=== PATIENT | male | born 2000 | race Hispanic/Latino ===

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

== ENCOUNTER 2020-02-28 07:40 | Outpatient (CLI) | payer OTHER ==
--- NOTE | 2020-02-28 08:49 | CT ---
CT OF THE ABDOMEN AND PELVIS WITH IV CONTRAST INDICATION: History of testicular cancer COMPARISON: February 04, 2019 FINDINGS: ABDOMEN: Lung bases: Clear Liver: There is mild fatty liver that appears slightly more pronounced than the prior exam. Gallbladder: Normal appearing. Pancreas: Normal. Adrenal glands: Normal. Spleen: Normal. Kidneys and ureters: Normal. No hydronephrosis. Vasculature: Normal. Lymph nodes:No lymphadenopathy. Free fluid in abdomen:No free fluid is evident. PELVIS: Small and large bowel: There is mild colonic diverticulosis without evidence of active diverticulitis . The sigmoid colon is poorly distended accentuating the wall thickness. No definite pericolonic inflammatory stranding is noted. Appendix:Not seen Bladder: Decompressed Rectal and perirectal soft tissues:Normal. Reproductive structures: Right testicle surgically absent. Free fluid in pelvis: No free fluid is evident. Lymphadenopathy pelvis: No lymphadenopathy is evident. Osseous structures: No acute osseous abnormality. No destructive osteolytic or osteoblastic lesion i s identified. Soft tissues:Normal. IMPRESSION: 1. No evidence to suggest metastatic disease in the abdomen or pelvis. 2. Right orchiectomy. 3. Mild fatty liver, new from the prior exam. 4. Mild colonic diverticulosis. There is decompression of the sigmoid colon with accentuated wall thi ckness. A component of a mild sigmoid colonic diverticulitis is not excluded.
--- NOTE | 2020-02-28 09:53 | RAD ---
TWO VIEW CHEST: HISTORY: Testicular cancer followup. COMPARISON: 02/04/2019. FINDINGS: MediPort catheter right subclavian is unchanged with tip overlying the SVC. The lung donovan are dave r. Heart and mediastinum appear normal. Osseous structures appear normal. IMPRESSION: Unremarkable chest. POS: [facility]
[2020-02-28] MEDS ORDERED: Iopamidol-370 76% 500 ML 1 ML ONE (14:01)
== END 2020-02-28 07:41 | disposition home or self-care (01) ==
LOC: BICCT 07:40
PROVIDERS: ATTEND Internal Medicine Medical Oncology
DX: C62.11 Malignant neoplasm of descended right testis (principal); K57.30 Diverticulosis of large intestine without perforation or abscess without bleeding; K76.0 Fatty (change of) liver, not elsewhere classified; Z90.79 Acquired absence of other genital organ(s)
CPT/HCPCS: 71046; 74177; Q9967

== ENCOUNTER 2021-03-10 10:02 | Outpatient (CLI) | payer OTHER ==
[2021-03-10] MEDS ORDERED: Iopamidol-370 76% 500 ML 1 ML ONE (11:26)
== END 2021-03-10 10:03 | disposition home or self-care (01) ==
LOC: BICCT 10:02
PROVIDERS: ATTEND Internal Medicine Medical Oncology
DX: C62.11 Malignant neoplasm of descended right testis (principal)
CPT/HCPCS: 71046; 74177

== ENCOUNTER 2023-09-13 14:58 | Emergency (ER) | payer OTHER ==
[~2023-09-13 14:58] MED LIST changes: -Iopamidol-370 76% 500 ML 1 ML ONE; +Iopamidol-370 76% 500 ML MDV (1 ML CHARGE) ONE
[2023-09-13 16:02] LABS: #Basophils Less than 0.03 10x3/uL (0.0-0.2); %Basophils 0.2 % (0.0-1.0); %Eosinophils 1.5 % (0.0-10.0); %Lymphocytes 26.5 % (21.0-51.0); %Monocytes 6.4 % (0.0-10.0); %Neutrophils 65.1 % (42.0-75.0); Hematocrit 45.3 % (42.0-52.0); Mean Corpuscular HGB CONC 35.3 g/dL (32.0-36.0); Mean Corpuscular Hemoglobin 30.5 pg (27.0-31.0); Mean Corpuscular Volume 86.3 fL (78.0-98.0); Mean Platelet Volume 11.2 fL (7.4-10.4); Platelet Count 213 10x3/uL (130-400); RBC Distribution Width 12.8 % (11.5-14.5); Red Blood Cell (RBC) Count 5.25 mill/uL (4.70-6.10)
[2023-09-13 16:03] LABS: Bacteria/HPF None Seen HPF (None Seen); Bilirubin Negative (Negative); Blood, Urine Negative (Negative); CAUTI Indications for Culture Pelvic or flank pain; Clarity Clear (Clear); Glucose, Urine (Dipstick) Normal (Negative); Ketone, Urine Negative (Negative); Leukocyte Negative Leu/uL (Negative); Nitrite Negative (Negative); Protein, Urine (Dipstick) Negative (Neg-Trace); RBC/HPF 0-3 HPF (0-3); Specific Gravity, Urine 1.023 (1.002-1.036); Squamous Epithelial None Seen HPF (0-3); Urobilinogen Normal mg/dL (Less than 2); WBC/HPF 0-3 HPF (0-3)
[2023-09-13 16:07] LABS: Urine Culture Reflex No No
[2023-09-13 16:21] LABS: ALT (SGPT) 15 U/L (8-55); AST (SGOT) 16 U/L (5-34); Albumin 3.9 g/dL (3.5-5.0); Alkaline Phosphatase 79 U/L (40-110); Anion Gap 14 mmol/L (10-20); BUN (Urea Nitrogen) 15 mg/dL (8.9-20.6); Bilirubin, Total 0.4 mg/dL (0.2-1.2); Calc. Creatinine Clearance 0 mL/min (70-130); Calcium 9.2 mg/dL (7.8-10.44); Carbon Dioxide 24 mmol/L (22-29); Chloride 107 mmol/L (98-107); Estimated GFR 115; Globulin 3.4 g/dL (2.4-3.5); Glucose 92 mg/dL (70-105); Potassium 3.8 mmol/L (3.5-5.1); Protein, Total 7.3 g/dL (6.0-8.3); Sodium 141 mmol/L (136-145)
[2023-09-14 13:15] LABS: Chlam.trachomatis by PCR,Urine Not Detected (NotDetected); GC N.gonorrhoeae PCR,UrineVOID Not Detected (NotDetected)
== END 2023-09-13 17:57 | disposition home or self-care (01) ==
LOC: ERS 14:58
DX: R30.0 Dysuria (principal); N32.89 Other specified disorders of bladder
CPT/HCPCS: 74177; 80053; 81001; 85025; 87491; 87591